=== PATIENT | female | born 2000 | race Caucasian/White ===

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

== ENCOUNTER 2020-01-29 01:58 | Outpatient (CLI) | payer BC, SELFPAY ==
[2020-01-29 17:58] LABS: SARS-CoV-2 RNA PCR Negative
== END 2020-01-29 01:59 | disposition home or self-care (01) ==
LOC: ANHCOVIDDT 01:58
PROVIDERS: PCP Pediatrics; Visit Provider Obstetrics & Gynecology
DX: Z01.812 Encounter for preprocedural laboratory examination (principal); Z20.828 Contact with and (suspected) exposure to other viral communicable diseases
CPT/HCPCS: 87635; C9803; U0003

== ENCOUNTER 2020-02-01 01:44 | Day surgery (SDC) | payer BC, SELFPAY ==
[2020-01-20 15:56] VITALS: BMI 25.7
[2020-02-01] VITALS (8 sets, daily range): BP systolic 116–137; BP diastolic 60–81; PULSE 81–115; RESP 12–20; TEMP 36.1–36.4; O2SAT 95–100
--- NOTE | 2020-02-01 09:05 | P.PNAN_ITS ---
Anes - Initial Pre Proc Eval Procedure: Operation Date: 02/01/20 10:30 Proposed Procedures p Diagnostic Laparoscopy - Jose Etienne MD Date/Time: 02/01/20 09:05 Surgeon: Jose Etienne MD Pre Op Diagnosis: Pain in Pelvis Patient Data Age: 20 Gender: F Height: 5 ft 4 in Weight: 68.04 kg Allergies Allergy/AdvReac Type Severity Reaction Status Date / Time No Known Allergies Allergy Mild Verified 01/20/20 15:56 Home Medications Medication Instructions Recorded Confirmed Type naproxen [EC-Naprosyn] 500 mg PO BID PRN #20 tablet 11/09/19 01/20/20 Rx etonogestrel [Nexplanon] 1 implant SUBDERMAL ONCE 01/20/20 01/20/20 History fexofenadine [Fernanda Allergy] 180 mg PO DAILY 01/20/20 01/20/20 History fluoxetine 20 mg PO DAILY 01/20/20 01/20/20 History Patient hx anesthesia problems: none Family hx anesthesia problems: none [facility] Past Medical History Medical History (Updated 02/01/20 @ 09:05 by Julian Weiss MD) Chiari malformation History of depression Surgical History Surgical History (Updated 02/01/20 @ 09:06 by Julian Weiss MD) S/P craniotomy Social History Social History Smoking status: Never smoker Substance use: current Substance use type: marijuana Last use: 01/19/20 Spiritual care concerns: No Anes - Eval Final PreProcedure Day of Procedure 02/01/20 09:05 Patient weight: normal Heart: regular rate and rhythm Lungs: clear to auscultation Airway: Mallampati scale class II Neurological: alert and oriented Last oral intake: >/= 8 hours ASA classification: II Emergent: no Anesthetic plan: proceed Anesthesia type and monitoring: general ETT and standard monitoring Informed Consent: The patient's anesthetic plan and its attendant risks and benefits were discussed with the patient/family/POA. Questions were solicited and answers provided to the satisfaction of the patient/family/POA.
[2020-02-01] MEDS: ACETAMINOPHEN 500 MG TABLET 1000 MG PO (09:06)
[2020-02-01] MEDS: LACTATED RINGERS 1,000 ML 30 ML IV CONT ×2 (09:11→12:39)
[2020-02-01] MEDS: KETOROLAC 15 MG/ML VIAL (*BKC) IV PUSH (09:12)
--- NOTE | 2020-02-01 10:28 | WPDHPUPDATE1 ---
History and Physical Update Update Date/Time: 02/01/20 10:28 History and Physical has been reviewed, including an updated exam of the patient. There are NO changes in the patient's condition. Risks, benefits, and alternatives have been discussed and questions answered. Patient agrees to proceed with procedure.
--- NOTE | 2020-02-01 12:49 | P.OP_ITS ---
Procedure Note - Detailed Date of procedure: 02/01/20 Pre-op diagnosis: Pain in Pelvis Post-op diagnosis: same ( Endometriosis) Procedure performed: diagnostic laparoscopy. Radical resection of endometriosis that required over 1 hour. Description of procedure: The patient was taken the operating room. She was prepped and draped in the dorsal lithotomy position after induction of general anesthesia. A 5 mm left upper quadrant incision was made in the abdominal skin with a scalpel. A 5 mm trocar was inserted the intra-abdominal cavity under direct visualization of the scope. A 5 mm left lower quadrant incision was made with the scalp on the abdominal skin and a 5 mm trocar was inserted the intra- abdominal cavity under direct visualization of the scope. A 5 mm infraumbilical incision was made with scalpel and a 5 mm trocar was inserted into the intra- abdominal cavity under direct visualization of the scope. The left ovary was suspended the anterior abdominal wall using a Martin Latrell needle that was used to puncture the left lower quadrant and passed a suture through the ovary and pulled the suture back out of the same site. It was held there with hemostat. This allowed complete visualization of the left posterior cul-de-sac. The peritoneum was removed from the left posterior cul-de-sac. The ureter was dissected out completely from the pelvic brim to the uterine artery. The. Medium was removed using sharp and blunt dissection and cautery it was removed from the rectum laterally to the fallopian tube. It was removed from the cervix and uterus to the pelvic brim. It was made hemostatic with cautery a nd irrigation. Interceed was placed over this area. The suture was removed from the ovary and was led fall. The anterior cul-de-sac was examined and various spots in the anterior cul-de-sac were cauterized. A spot on the anterior cul-de-sac left side was removed sharp dissection. This area was cauterized and made hemostatic. On the right side of the posterior cul-de-sac a prominent endometrial implant was present was cauterized with bipolar cautery. The pelvis was irrigated with copious amounts of normal saline. The pneumoperitoneum was reduced. The trocars were removed. The patient was taken recovery room stable condition. Sponge lap and needle counts were correct x2. Anesthesia: GETA Surgeon: Jose Etienne MD Estimated blood loss (mL): 75 Drains: No Packing: No Complications: No immediate complications Condition: stable Disposition: PACU Findings: there was endometriosis throughout the posterior cul-de-sac of the pelvis. There is endometriosis on the dome of the bladder and left of the bladder. There were normal-appearing ovaries and tubes.
[2020-02-01] MEDS: diphenhydrAMINE HCl INJ 50 MG/ML VIAL 25 MG IV PUSH (12:54)
== END 2020-02-01 14:20 | disposition home or self-care (01) ==
PROVIDERS: PCP Pediatrics; Visit Provider Obstetrics & Gynecology
PROC: (CPT 49320; principal; 2020-02-01 10:30)
DX: N80.3 Endometriosis of pelvic peritoneum (principal); R10.2 Pelvic and perineal pain; N73.6 Female pelvic peritoneal adhesions (postinfective); F12.90 Cannabis use, unspecified, uncomplicated
CPT/HCPCS: 58662; 88305; A9270; J1100; J1170; J1200; J1885; J2250; J2405; J2704; J2710; J3010; J7030; J7120